=== PATIENT | female | born 1990 | race Caucasian/White ===

== ENCOUNTER 2021-01-26 11:05 | Emergency (ER) | payer OTHER, SELFPAY ==
[2021-01-26 11:15] VITALS: BP 147/78; PULSE 82; RESP 20; TEMP 37.6; O2SAT 99
--- NOTE | 2021-01-26 11:32 | ED.EAR ---
HPI - Ear Problem General Chief complaint: Ear Stated complaint: right swollen ear lobe Time Seen by Provider: 01/26/21 11:25 Source: patient and RN notes reviewed Mode of arrival: ambulatory Limitations: no limitations History of Present Illness HPI Narrative: Patient presents today complaining of swelling, redness, and pain to her right earlobe and surrounding lymph nodes since yesterday at 7 PM. Symptoms have been worsening since onset. She currently rates her pain 5/10, which increases with lying on the right side and touching the area. She has tried no interventions prior to arrival. History of type 1 diabetes and epilepsy. States something similar has happened in the past, but related to wearing cheap earrings, but states she has not had any cheap earrings in recently. No recent injury to the skin. MD Complaint: ear pain Related Data Home Medications Medication Instructions Recorded Confirmed blood sugar diagnostic [OneTouch 01/26/21 01/26/21 Verio test strips] cetirizine [Zyrtec] 10 mg PO DAILY 01/26/21 01/26/21 folic acid 1 mg PO DAILY 01/26/21 01/26/21 insulin lispro [Humalog U-100 See Rx Instructions .ROUTE .COMPLEX 01/26/21 01/26/21 Insulin] lamotrigine 100 mg PO DAILY 01/26/21 01/26/21 norethindrone-ethin estradiol 1 tablet PO DAILY 01/26/21 01/26/21 [Nortrel 1/35 ()] vitamin B complex [B 1 tablet PO DAILY 01/26/21 01/26/21 Complex-Vitamin B12] Allergies Allergy/AdvReac Type Severity Reaction Status Date / Time cefaclor Allergy Mild Hives Verified 01/26/21 11:21 Review of Systems Review of Systems: Narrative: CONSTITUTIONAL: Denies body aches, fever, chills, or sweats. EYES: Denies visual changes, redness, or discharge. ENT: Denies rhinorrhea, congestion, sore throat, or otalgia.+ Pain, swollen redness to the right ear lobe CARDIOVASCULAR: Denies chest pain, palpitations, or edema. RESPIRATORY: Denies cough or dyspnea. GASTROINTESTINAL: Denies abdominal pain, nausea, vomiting, or diarrhea. GENITOURINARY: Denies dysuria or hematuria. SKIN: Denies rash, itching, or wounds. MUSCULOSKELETAL: Denies back pain, joint pain, or myalgia. NEUROLOGIC: Denies headache, numbness, tingling, or weakness. PSYCH: Denies depression or anxiety. [facility] Past Medical History Medical History (Updated 01/26/21 @ 11:42 by Ashlyn Gamboa, CLINICAL DATA MANAGEMENT MANAGER, ) Epilepsy Type 1 diabetes Social History Social History Gender identity (if verbalized by the patient): Female Comments At time of signature, I have reviewed and agree with nursing past medical, surgical, social and family history unless otherwise noted. Please see nursing chart for further information. There is no relevant family history pertinent to the presenting complaint Exam Narrative: Exam Narrative: GENERAL: Well-appearing, well-nourished, and in no acute distress. HEAD: Normocephalic, atraumatic. EYES: EOMI. No redness or drainage. Conjunctivae normal. ENT: Mucous membranes pink and moist. Right ear: Ear lobe is moderately erythematous and edematous. There is a 3 mm x 1 mm crusted very superficial abrasion to the lower lobe area. Tender to palpation. No fluctuance. Mildly indurated. There are 2 areas that are pierced to the lobe. These areas are not involved in the erythema or edema. Preauricular and postauricular lymphadenopathy present. NECK: Normal AROM. CHEST: No respiratory distress. EXTREMITIES: Normal range of motion. No edema. SKIN: Warm, dry, no rash. Capillary refill normal. Normal skin turgor. NEURO: No focal deficits. Alert and oriented x3. Gait steady. PSYCH: Normal affect. No signs of depression or anxiety. Course Vital Signs Vital signs: Vital Signs Temperature 99.6 F 01/26/21 11:15 Pulse Rate 82 01/26/21 11:15 Respiratory Rate 20 01/26/21 11:15 Blood Pressure 147/78 H 01/26/21 11:15 Pulse Oximetry 99 01/26/21 11:15 Temperature 98.9 F 01/26/21 11:35 Pulse Rate 85 01/26/21 11:35 Re
[2021-01-26 11:35] VITALS: BP 99/76; PULSE 85; RESP 16; TEMP 37.2; O2SAT 99
--- NOTE | 2021-01-26 13:49 | PC.NURSE ---
Addendum entered by Tia Purcell, RT(R) 01/26/21 13:53: fe patient Original Note: disregard vital signs documented at 11;35
== END 2021-01-26 11:38 | disposition home or self-care (01) ==
PROVIDERS: Emergency Provider Nurse Practitioner
DX: H60.11 Cellulitis of right external ear (principal); E10.9 Type 1 diabetes mellitus without complications; G40.909 Epilepsy, unspecified, not intractable, without status epilepticus
CPT/HCPCS: 99213; G0463

== ENCOUNTER 2021-07-09 10:21 | Emergency (ER) | payer OTHER, SELFPAY ==
--- NOTE | ~2021-07-09 | XR_ITS ---
EXAMINATION: XR wrist RT min 3V DATE: 07/09/2021 10:49 INDICATION: Ulnar-sided right wrist pain TECHNIQUE: Posteroanterior, ulnar deviation, oblique, and lateral views of the right wrist were obtai steven. COMPARISON: none FINDINGS: Alignment is normal. No fracture. Joint spaces are normal. Soft tissues are unremarkable. IMPRESSION: 1. Negative right wrist radiographs. Reviewed, dictated and finalized at location A.
[2021-07-09 10:27] VITALS: BP 140/78; PULSE 108; RESP 16; TEMP 36.7; O2SAT 98
--- NOTE | 2021-07-09 10:38 | ED.EXTPRO ---
HPI - Extremity Problem General Chief complaint: Extremity Problem,Nontraumatic Stated complaint: rt arm pain Time Seen by Provider: 07/09/21 10:38 Source: patient, RN notes reviewed and old records reviewed History of Present Illness HPI Narrative: 30-year-old female presents to the [facility] with complaints of right ulnar aspect wrist pain since last night. States that she was working out approximately 5 PM last night and then several hours later started having sharp pains. Denies any treatment prior to arrival. Denies any direct trauma. No swelling, bruising, signs of infection noted. Strong academic physician noted. Positive radial pulse noted. Has history of epilepsy, type 1 diabetes and kidney cancer. As a child had her kidney removed. MD Complaint: extremity pain Related Data Home Medications Medication Instructions Recorded Confirmed blood sugar diagnostic [OneTouch 01/26/21 01/26/21 Verio test strips] cetirizine [Zyrtec] 10 mg PO DAILY 01/26/21 01/26/21 folic acid 1 mg PO DAILY 01/26/21 01/26/21 insulin lispro [Humalog U-100 See Rx Instructions .ROUTE .COMPLEX 01/26/21 01/26/21 Insulin] lamotrigine 100 mg PO DAILY 01/26/21 01/26/21 norethindrone-ethin estradiol 1 tablet PO DAILY 01/26/21 01/26/21 [Nortrel 1/35 ()] vitamin B complex [B 1 tablet PO DAILY 01/26/21 01/26/21 Complex-Vitamin B12] Allergies Allergy/AdvReac Type Severity Reaction Status Date / Time cefaclor Allergy Mild Hives Verified 01/26/21 11:21 Review of Systems Review of Systems: All systems reviewed & are unremarkable except as noted in HPI and below Constitutional: Constitutional: Reports no additional constitutional complaints Eyes: Eyes: Reports no additional eye complaints ENT: Reports system reviewed and no additional complaints, except as documented Cardiovascular: Cardiovascular: Reports no additional cardiovascular complaints Respiratory: Respiratory: Reports no additional respiratory complaints Gastrointestinal: Gastrointestinal: Reports no additional gastrointestinal complaints Musculoskeletal: Musculoskeletal: Reports as per HPI Comments: Right wrist pain Integumentary/Breasts: Skin/Breast: Reports system reviewed and no additional complaints, except as docu Neurologic: Reports system reviewed and no additional complaints, except as documented Allergic/Immunologic: Allergic/Immunologic: Reports no additional allergic/immunologic complaints PMFSH Past Medical History Medical History (Updated 07/09/21 @ 11:30 by Paige Mock) Epilepsy Type 1 diabetes Wilms' tumor removed age 6 Surgical History Surgical History (Updated 07/09/21 @ 11:31 by Paige Mock) H/O kidney removal wilms tumor Social History Social History (Updated 07/09/21 @ 11:31 by Paige Mock) Smoking status: Never smoker Occupation/Education: student Gender identity (if verbalized by the patient): Female Comments At the time of my signature, I reviewed and agree with the nursing past medical, surgical, social, and family history. There is no relevant family history pertinent to the patient complaint. Exam Const: General: healthy appearing, no acute distress and alert Nutritional Appearance: well nourished and obese Orientation/consciousness: patient oriented x3 Limitations: no limitations HENMT: Head: normal to inspection Ears: external ears normal Eyes: Pupils: Equal, round and reactive pupils present Neck: Neck: normal visual inspection, no lymphadenopathy and no meningeal signs Chest: Chest palpation & inspection: normal inspection of the chest Resp: Effort & Inspection: normal respiratory effort and no use of accessory muscles Auscultation: clear to auscultation bilaterally, no crackles, no rales, no rhonchi and no wheezes Cardio: Rate: regular rate Rhythm: regular rhythm Back/Spine/Pelvis: Back: no CVA tenderness Skin: General skin exam: normal color Rashes: no rashes Wounds: no wounds Neuro: Gen
== END 2021-07-09 11:07 | disposition home or self-care (01) ==
PROVIDERS: Emergency Provider Nurse Practitioner
DX: S63.501A Unspecified sprain of right wrist, initial encounter (principal); S66.911A Strain of unspecified muscle, fascia and tendon at wrist and hand level, right hand, initial encounter; X58.XXXA Exposure to other specified factors, initial encounter; G40.909 Epilepsy, unspecified, not intractable, without status epilepticus; E10.9 Type 1 diabetes mellitus without complications; Z85.528 Personal history of other malignant neoplasm of kidney
CPT/HCPCS: 73110; 99213; G0463

== ENCOUNTER 2022-08-04 15:15 | Emergency (ER) | payer OTHER, SELFPAY ==
--- NOTE | 2022-08-04 15:18 | ED.URI ---
HPI - URI/Sore Throat General Chief Complaint: Upper Respiratory Infection Stated Complaint: sore throat, sinus headache, congestion Time Seen by Provider: 08/04/22 15:25 Source: patient Mode of arrival: ambulatory Limitations: no limitations History of Present Illness HPI Narrative: Ms. Alcaraz is a 31-year-old female patient presenting to the clinic today with complaints of sore throat, sinus headache, and nasal/chest congestion x2 days. She reports symptoms began on Tuesday. She COVID tested herself today and was negative. She denies any fever or chills. She denies any known sick contacts MD elicited complaint: sore throat and nasal congestion Related Data Home Medications Medication Instructions Recorded Confirmed blood sugar diagnostic (OneTouch 01/26/21 08/04/22 Verio test strips) cetirizine 10 mg tablet (Zyrtec) 10 mg PO DAILY 01/26/21 08/04/22 folic acid 1 mg tablet 1 mg PO DAILY 01/26/21 08/04/22 insulin lispro 100 unit/mL See Rx Instructions .Route .COMPLEX 01/26/21 08/04/22 subcutaneous solution (Humalog U-100 Insulin) lamotrigine 100 mg tablet 100 mg PO DAILY 01/26/21 08/04/22 norethindrone 1 mg-ethinyl 1 tablet PO DAILY 01/26/21 08/04/22 estradiol 35 mcg (21) tablet (Nortrel) vitamin B complex (B 1 tablet PO DAILY 01/26/21 08/04/22 Complex-Vitamin B12 tablet) Allergies Allergy/AdvReac Type Severity Reaction Status Date / Time cefaclor Allergy Mild Hives Verified 08/04/22 15:28 Review of Systems Review of Systems: Pertinent positives per HPI. Patient denies any fever, chills, rash, headache, visual changes, dizziness, cough, shortness of breath, chest pain, palpitations, nausea, vomiting, diarrhea, constipation, abdominal pain, or any urinary issues. [facility] Past Medical History Medical History Epilepsy Type 1 diabetes Wilms' tumor removed age 6 Surgical History Surgical History H/O kidney removal wilms tumor Social History Social History Smoking status: Never smoker Gender identity (if verbalized by the patient): Female Comments At the time of my signature, I reviewed and agree with the nursing past medical, surgical, social, and family history. There is no relevant family history pertinent to the patient complaint. Exam Narrative: General: Well-developed, obese, in no apparent distress Head: Normocephalic, atraumatic Eyes: Pupils equally round and reactive to light bilaterally, EOM intact, sclera and conjunctive clear, no discharge, lids normal Ears: TMs intact and clear, ear canals clear, no drainage, grossly hearing normal. Nose: Nares patent, clear nasal discharge, mild inflammation, no sinus tenderness. Mouth: Oral pharynx without lesions or masses, good dentition, MMM. Oropharynx red, postnasal drip Neck: Supple, trachea midline, no enlargement of anterior or posterior cervical nodes, no thyroid masses or goiter palpable. Cardio: Regular rate and rhythm, s1 and s2 normal, no murmur appreciated. Resp: Clear to auscultation bilaterally, no rhonchi, rales, wheezing or rubs Course Course Emergency Course: Portions of this record may have been created with voice recognition software. Level of Care: Express Care Visit Vital Signs Vital signs: Vital Signs Oxygen Delivery Room Air 08/04/22 15:28 Temperature 37.4 C 08/04/22 15:31 Pulse Rate 118 H 08/04/22 15:31 Respiratory Rate 16 08/04/22 15:31 Blood Pressure 142/109 H 08/04/22 15:31 Pulse Oximetry 98 08/04/22 15:31 Oxygen Delivery Room Air 08/04/22 15:28 Vital signs reviewed MDM - URI/Sore Throat MDM Narrative Medical decision making narrative: At the time of the patient is resting comfortably on the exam table. Influenza and strep testing was obtained. Strep test was negative however
[2022-08-04 15:31] VITALS: BP 142/109; PULSE 118; RESP 16; TEMP 37.4; O2SAT 98
== END 2022-08-04 15:48 | disposition home or self-care (01) ==
PROVIDERS: Emergency Provider Nurse Practitioner Family
DX: J10.1 Influenza due to other identified influenza virus with other respiratory manifestations (principal); G40.909 Epilepsy, unspecified, not intractable, without status epilepticus; E10.9 Type 1 diabetes mellitus without complications
CPT/HCPCS: 87081; 87804; 87880; 99213; G0463

== ENCOUNTER 2022-09-03 15:23 | Emergency (ER) | payer OTHER, SELFPAY ==
[2022-09-03 15:38] VITALS: BP 165/112; PULSE 85; RESP 16; TEMP 36.9; O2SAT 99
--- NOTE | 2022-09-03 15:59 | ED.URI ---
HPI - URI/Sore Throat General Chief Complaint: Upper Respiratory Infection Stated Complaint: congestion, headache Time Seen by Provider: 09/03/22 15:59 Source: patient Mode of arrival: ambulatory Limitations: no limitations History of Present Illness HPI Narrative: 31-year-old female who presents to [facility] with complaints of sinus congestion and chest congestion with headache for the past week with symptoms increasing. Patient reports that she had influenza 3 weeks ago. Patient verbalizes pain to head as being 5/10 and has been taking Zicam and Mucinex for her symptoms without improvement. Patient denies any known fevers, denies any shortness of breath. MD elicited complaint: cough, rhinorrhea, nasal congestion and other (headache) Pertinent past history: other ( influenza 3 weeks ago) Onset (ago): week(s) (1) Pain scale (0-10): 5 Treatments prior to arrival: other (Zicam and Mucinex) Related Data Home Medications Medication Instructions Recorded Confirmed blood sugar diagnostic (OneTouch 01/26/21 09/03/22 Verio test strips) cetirizine 10 mg tablet (Zyrtec) 10 mg PO DAILY 01/26/21 09/03/22 folic acid 1 mg tablet 1 mg PO DAILY 01/26/21 09/03/22 insulin lispro 100 unit/mL See Rx Instructions .Route .COMPLEX 01/26/21 09/03/22 subcutaneous solution (Humalog U-100 Insulin) lamotrigine 100 mg tablet 100 mg PO DAILY 01/26/21 09/03/22 norethindrone 1 mg-ethinyl 1 tablet PO DAILY 01/26/21 09/03/22 estradiol 35 mcg (21) tablet (Nortrel) vitamin B complex (B 1 tablet PO DAILY 01/26/21 09/03/22 Complex-Vitamin B12 tablet) Allergies Allergy/AdvReac Type Severity Reaction Status Date / Time cefaclor Allergy Mild Hives Verified 09/03/22 15:37 Review of Systems Review of Systems: CONSTITUTIONAL: Denies malaise, chills, sweats, or fever. EYES: Denies visual changes, redness, or discharge. ENT: Reports rhinorrhea, congestion, sinus pain, no otalgia, no sore throat. CARDIOVASCULAR: Denies chest pain, palpitations, or edema. RESPIRATORY: Reports cough and chest congestion? Denies dyspnea. GASTROINTESTINAL: Denies abdominal pain, nausea, vomiting, diarrhea SKIN: Denies rash or itching. MUSCULOSKELETAL: Denies myalgia. NEUROLOGIC: Reports headache. All systems reviewed & are unremarkable except as noted in HPI and below PMFSH Past Medical History Medical History Epilepsy Type 1 diabetes Wilms' tumor removed age 6 Surgical History Surgical History H/O kidney removal wilms tumor Social History Social History Smoking status: Never smoker Gender identity (if verbalized by the patient): Female Comments At time of signature, agree with nursing past medical, surgical, social and family history. There is no relevant family history pertinent to the presenting complaint Exam Narrative: GENERAL: Well-appearing, well-nourished, and in no acute distress. HEAD: Normocephalic EYES: PERRLA, conjunctivae clear ENT: Nares clear, turbinates edematous and erythematous, clear discharge, sinus pressure and headache. Mucous membranes moist. TM pearly preston with dull light reflex bilaterally; no tragal tenderness. Oropharynx erythematous without lesions. Tonsils not enlarged and without exudate, no drooling, no hoarseness, no trismus, uvula midline.post nasal drainage NECK: Supple. No lymphadenopathy CHEST: Clear to auscultation, breath sounds equal. No wheezing, rhonchi, rales, or stridor. No respiratory distress, speaks in full sentences.cough SAO2 99% on room air HEART: Regular rate and rhythm. No murmur heard. SKIN: Warm, dry, no rash. NEURO: Alert and oriented x3. PSYCH: Normal mood and affect Course Course Emergency Course: Patient is aware of diagnosis, understands and agrees to treatment plan.? Anticipatory angela
[2022-09-03 16:24] VITALS: BP 123/105
== END 2022-09-03 16:19 | disposition home or self-care (01) ==
PROVIDERS: Emergency Provider Registered Nurse
DX: J32.9 Chronic sinusitis, unspecified (principal); G40.909 Epilepsy, unspecified, not intractable, without status epilepticus; E10.9 Type 1 diabetes mellitus without complications
CPT/HCPCS: 99213; G0463

== ENCOUNTER 2022-11-16 15:05 | Emergency (ER) | payer OTHER, SELFPAY ==
[2022-11-16 15:19] VITALS: BP 149/95; PULSE 79; RESP 20; TEMP 37; O2SAT 99
--- NOTE | 2022-11-16 15:24 | ED.EAR ---
HPI - Ear Problem General Chief complaint: Ear Stated complaint: headache, rt ear pain Time Seen by Provider: 11/16/22 15:25 Source: patient Mode of arrival: ambulatory Limitations: no limitations History of Present Illness HPI Narrative: 31-year-old female presented for complaint of right ear pain for 4 days. She states it felt like ?fluid sloshing? at the start of symptoms. Now with more pressure in the forehead and swollen glands. She denies associated sore throat, tinnitus, dizziness vomiting, fevers or chills. She takes Zyrtec on a daily basis. She has taken ibuprofen for pain today. MD Complaint: ear pain Related Data Home Medications Medication Instructions Recorded Confirmed blood sugar diagnostic (OneTouch 01/26/21 09/03/22 Verio test strips) folic acid 1 mg tablet 1 mg PO DAILY 01/26/21 11/16/22 insulin lispro 100 unit/mL See Rx Instructions .Route .COMPLEX 01/26/21 11/16/22 subcutaneous solution (Humalog U-100 Insulin) lamotrigine 100 mg tablet 100 mg PO DAILY 01/26/21 11/16/22 norethindrone 1 mg-ethinyl 1 tablet PO DAILY 01/26/21 11/16/22 estradiol 35 mcg (21) tablet (Nortrel) vitamin B complex (B 1 tablet PO DAILY 01/26/21 11/16/22 Complex-Vitamin B12 tablet) Allergies Allergy/AdvReac Type Severity Reaction Status Date / Time cefaclor Allergy Mild Hives Verified 11/16/22 15:13 Review of Systems Review of Systems: CONSTITUTIONAL: Denies malaise, chills, or fever. EYES: Denies visual changes, redness, or discharge. ENT: Denies rhinorrhea, congestion, sinus pain, and sore throat. Reports ear pain CARDIOVASCULAR: Denies chest pain, palpitations, or edema. RESPIRATORY: Denies cough or dyspnea. GASTROINTESTINAL: Denies abdominal pain, nausea, vomiting, diarrhea SKIN: Denies rash or itching. MUSCULOSKELETAL: Denies myalgia. NEUROLOGIC: Denies headache. All systems reviewed & are unremarkable except as noted in HPI and below PMFSH Past Medical History Medical History Epilepsy Type 1 diabetes Wilms' tumor removed age 6 Surgical History Surgical History H/O kidney removal wilms tumor Social History Social History Smoking status: Never smoker Occupation/Education: student Gender identity (if verbalized by the patient): Female Comments At time of signature, agree with nursing past medical, surgical, social and family history. There is no relevant family history pertinent to the presenting complaint Exam Narrative: GENERAL: Well-appearing, EYES: PERRLA, conjunctivae clear ENT: Nares clear. Mucous membranes moist. TMs pearly preston with dull light reflex bilaterally; no tragal tenderness. Oropharynx not erythematous without lesions. Tonsils not enlarge. NECK: Supple. No lymphadenopathy CHEST: Clear to auscultation, breath sounds equal. HEART: Regular rate and rhythm. No murmur heard. SKIN: Warm, dry, no rash. NEURO: Alert and oriented x3. PSYCH: Normal mood and affect Course Course Emergency Course: Patient is aware of diagnosis, understands and agrees to treatment plan. Anticipatory guidance given. Patient agrees to follow-up as directed and is aware of reasons to seek care at the emergency department. Portions of this record may have been created with voice recognition software Level of Care: Express Care Visit Vital Signs Vital signs: Vital Signs Temperature 98.6 F 11/16/22 15:19 Pulse Rate 79 11/16/22 15:19 Respiratory Rate 20 11/16/22 15:19 Blood Pressure 149/95 H 11/16/22 15:19 Pulse Oximetry 99 11/16/22 15:19 Temperature 98.6 F 11/16/22 15:19 Pulse Rate 79 11/16/22 15:19 Respiratory Rate 20 11/16/22 15:19 Blood Pressure 149/95 H 11/16/22 15:19 Pulse Oximetry 99 11/16/22 15:19 Reviewed Medical Decision Making MDM Narrative Medical decision m
== END 2022-11-16 15:33 | disposition home or self-care (01) ==
PROVIDERS: Emergency Provider Nurse Practitioner Family
DX: H92.01 Otalgia, right ear (principal); E10.9 Type 1 diabetes mellitus without complications; Z79.4 Long term (current) use of insulin
CPT/HCPCS: 99211; G0463